=== PATIENT | female | born 1975 ===

== ENCOUNTER 2017-05-30 16:03 | Emergency (ER) | payer SELFPAY | END 2017-05-30 19:24 | disposition left against medical advice (07) | LOC: UCCORT 16:03 | DX: J34.89 Other specified disorders of nose and nasal sinuses (principal); Z53.21 Procedure and treatment not carried out due to patient leaving prior to being seen by health care provider ==

== ENCOUNTER → 2018-06-28 11:30 | Day surgery (SDC) | payer OTHER | END | disposition home or self-care (01) | LOC: OR 11:30 | PROVIDERS: ATTEND Podiatrist | DX: Z53.9 Procedure and treatment not carried out, unspecified reason (principal) ==

== ENCOUNTER → 2018-08-02 10:19 | Day surgery (SDC) | payer OTHER ==
[~2018-08-02 10:19] MED LIST: Buffered Lidocaine 1% SYRIN* 1 ML/SYRINGE INTRADERM ONE; Bupivacaine 0.25% SDV PF* 10 ML VIAL INJ ONE; Dexamethasone IV* 4 MG/ML 5 ML VIAL (20 MG) ONE; Ketorolac INJ* 30 MG/ML 1 ML VIAL IV PRN; Lactated Ringers 1000 ML Bag* 1,000 ML IV SCH; Lidocaine 1% INJ* 10 MG/ML 30 ML SDV ONE; Lidocaine 2% PF * 5 ML VIAL ONE; Naloxone* 0.4 MG/ML 1 ML VIAL IV PRN; Ondansetron INJ* 2 MG/ML VIAL IV PRN; Propofol* 10 MG/ML 20 ML BTL ONE; ceFAZolin 2 GM PREMIX in ORs 2 GM/50 ML BAG IVPB ONE; fentaNYL* 50 MCG/ML 2 ML VIAL (100 MCG VIAL) ONE
[2018-08-02 15:19] VITALS: BP 131/90
--- NOTE | 2018-08-02 22:58 | OP ---
DATE OF OPERATION: 08/02/18 - [facility] DATE OF : 71 SURGEON: Raleigh Funk DPM ANESTHESIA: MAC local. PRE-OP DIAGNOSIS: Left hallus valgus. POST-OP DIAGNOSIS: Left hallus valgus. OPERATIVE PROCEDURE: Left hallus valgus repair. ESTIMATED BLOOD LOSS: Less than 10 cc. IV FLUIDS: LR 1000 cc. DRAINS: None. SPECIMENS: Bones in the first metatarsal. DESCRIPTION OF PROCEDURE: The patient was taken to the operating room, was placed in the supine position. Time-out was called and OR team agreed. The left foot was then blocked with 10 cc of 1% lidocaine plain in a Dsouza block fashion at the base of the first metatarsal. The foot was then prepped and draped in a sterile manner. The left foot was exsanguinated with an Esmarch bandage and the cuff was then inflated to 250 mmHg. On examination, there was a painful dorsomedial exostosis. The patient requested to have a painful bony cushion removed. A linear incision was then made right over the area with a # 15 blade. Sharp and blunt dissection was then made starting from the dermis, epidermis, subcutaneous tissue, down to the deep fascia, and down to the capsule. The capsule was incised in a linear fashion. The periosteum was _ bone exposing the first metatarsophalangeal joint. There was a prominent dorsomedial bony cushion right at the head of the first metatarsal that was removed with a sagittal saw. The and once it was determined that the painful portion of the bone was removed, the procedure was then deemed completed. The site was irrigated, closed in a layered anatomical fashion. The underlying tissues were closed with 3-0 Vicryl and skin was closed with 4-0 nylon. I then injected 3 cc of 0.25% Marcaine plain and 2 cc or 8 mg of dexamethasone phosphate. The patient tolerated the procedure and anesthesia well. The cuff was deflated. The foot was then placed in a dry sterile dressing. The patient was taken to Recovery in stable condition and will follow with my office in 3 days. [id number] #: [id number] MTDD
== END | disposition home or self-care (01) ==
LOC: OR 10:19
PROVIDERS: ATTEND Podiatrist
DX: M20.12 Hallux valgus (acquired), left foot (principal); Z72.0 Tobacco use; R05 Cough; M19.90 Unspecified osteoarthritis, unspecified site; F41.8 Other specified anxiety disorders
CPT/HCPCS: 81025; 88304; 88311; J0690; J1100; J2704; J3010; J3490